=== PATIENT | female | born 1960 | race Caucasian/White ===

== ENCOUNTER 2018-10-14 12:23 | Inpatient (IN) | payer MEDICAID ==
[~2018-10-14] VITALS: Ht 149.9 cm; Wt 41.7 kg
[2018-10-14] MEDS ORDERED: GABA-529 PO (12:32)
[2018-10-14] MEDS ORDERED: RIVA10TA PO (12:32)
[2018-10-14] MEDS ORDERED: ASPI-1159 PO (12:32)
[2018-10-14] MEDS ORDERED: DEXTROSE 50% WATER 50ML SYRINGE IV ONE ×3 (14:30→16:04)
[2018-10-14] MEDS ORDERED: PIPERACILLIN/TAZ 3.375G PREMIX 50 ML IV ONE (14:30)
[2018-10-14] MEDS ORDERED: ONDANSETRON HCL 4MG/2ML INJ IV ONE ×2 (14:30→17:30)
[2018-10-14] MEDS ORDERED: MORPHINE SULFATE 4 MG/ML CPJ (NOT FOR IM USE) IV ONE ×2 (14:30→17:30)
[2018-10-14] MEDS ORDERED: VANCOMYCIN 1 G PREMIX 200 ML IV ONE (14:30)
[2018-10-14] MEDS ORDERED: SODIUM CHLORIDE 0.9% 1000ML BAG (SEPSIS BOLUS) IV ONE (14:45)
[2018-10-14 15:18] LABS: BASOPHILS % 0.5 % (0.0-2.0); EOSINOPHILS % 0.3 % (0.0-5.0); HEMATOCRIT. 32.3 % (36.0-48.0); HEMOGLOBIN. 9.9 g/dL (12.0-16.0); LYMPHOCYTES % 16.6 % (20.0-50.0); MEAN CORPUSCULAR HEMOGLOBIN 21.8 pg (28.0-32.0); MEAN CORPUSCULAR VOLUME 71.5 fL (81.0-99.0); MONOCYTES % 5.9 % (2.0-8.0); NEUTROPHILS % 76.7 % (40.0-76.0); PLATELET 515 x1000/uL (130-400); RED BLOOD CELL COUNT 4.52 mill/uL (4.2-5.4)
[2018-10-14 15:22] LABS: CHLORIDE 101 mEq/L (98-107)
[2018-10-14 15:24] LABS: INR 1.1; PARTIAL THROMBOPLASTIN TIME 30.7 sec (23.4-31.0); PROTHROMBIN TIME 11.4 sec (9.1-11.1)
[2018-10-14 15:52] LABS: PLATELET ESTIMATE INCREASED
[2018-10-14] MEDS ORDERED: ENOXAPARIN 40MG/0.4ML SYR SUBCUT ONE (17:30)
[2018-10-14 20:30] VITALS: BP_SYST 126; BP_DIAS 73; BP_DIAS 74
[2018-10-14] MEDS ORDERED: DEXTROSE 50% WATER 50ML SYRINGE IV PRN ×4 (21:45)
[2018-10-14] MEDS ORDERED: HEPARIN 25,000 UNITS PREMIX 500 ML IV SCH (21:45)
[2018-10-14 22:00] VITALS: BP 167/87
[2018-10-14] MEDS ORDERED: HEPARIN 80 UNITS/KG BOLUS IV SCH (22:30)
[2018-10-14] MEDS: GABAPENTIN 300MG CAPSULE PO SCH (22:46)
[2018-10-14] MEDS: MORPHINE SULFATE 4 MG/ML CPJ (NOT FOR IM USE) IV PRN (22:46)
[2018-10-14] MEDS ORDERED: HEPARIN BOLUS PRN aPTT 37-44 IV (23:00)
[2018-10-14] MEDS ORDERED: HEPARIN BOLUS PRN aPTT <36 IV (23:00)
[2018-10-14] MEDS: HEPARIN 25,000 UNITS PREMIX 500 ML IV SCH (23:31)
[2018-10-15] VITALS (12 sets, daily range): BP systolic 104–166; BP diastolic 29–108
[2018-10-15] MEDS: GABAPENTIN 300MG CAPSULE PO SCH ×3 (06:10→23:59)
[2018-10-15 06:31] LABS: BASOPHILS % 0.7 % (0.0-2.0); EOSINOPHILS % 0.8 % (0.0-5.0); HEMATOCRIT. 28.1 % (36.0-48.0); HEMOGLOBIN. 8.6 g/dL (12.0-16.0); LYMPHOCYTES % 23.7 % (20.0-50.0); MEAN CORPUSCULAR HEMOGLOBIN 21.6 pg (28.0-32.0); MEAN CORPUSCULAR VOLUME 70.9 fL (81.0-99.0); MEAN PLATELET VOLUME 7.7 fl (7.4-10.4); MONOCYTES % 9.4 % (2.0-8.0); NEUTROPHILS % 65.4 % (40.0-76.0); PLATELET 474 x1000/uL (130-400); RED BLOOD CELL COUNT 3.96 mill/uL (4.2-5.4); RED CELL DISTRIBUTION WIDTH 24.7 % (11.6-14.6)
[2018-10-15] MEDS ORDERED: BLOOD SUGAR DIAGNOSTIC STRIP TEST SCH ×3 (07:30)
[2018-10-15 07:33] LABS: CHLORIDE 103 mEq/L (98-107)
[2018-10-15] MEDS: LISINOPRIL 5MG TABLET PO SCH (08:52)
[2018-10-15] MEDS: MORPHINE SULFATE 4 MG/ML CPJ (NOT FOR IM USE) IV PRN ×2 (08:55→13:05)
[2018-10-15] MEDS: BLOOD SUGAR DIAGNOSTIC STRIP TEST SCH ×3 (12:30→20:27)
[2018-10-15] MEDS ORDERED: SODIUM BICARBONATE 4% (2.4MEQ) 5ML VIAL IV ONE (12:53)
[2018-10-15] MEDS ORDERED: LIDOCAINE HCL 1% 20ML VIAL (Pyxis) INJ ONE (12:53)
[2018-10-15] MEDS ORDERED: IOHEXOL-350 100 ML BOTTLE ONE (16:50)
[2018-10-15] MEDS ORDERED: RIVAROXABAN 10 MG TABLET PO SCH (17:00)
[2018-10-15] MEDS: INSULIN LISPRO 100 UNITS/ML SUBCUT SCH ×2 (18:00→20:33)
[2018-10-15] MEDS: ATORVASTATIN CALCIUM 40MG TABLET PO SCH (21:21)
[2018-10-16] VITALS (11 sets, daily range): BP systolic 97–132; BP diastolic 56–95
[2018-10-16] MEDS: MORPHINE SULFATE 4 MG/ML CPJ (NOT FOR IM USE) IV PRN ×5 (00:39→19:10)
[2018-10-16] MEDS: GABAPENTIN 300MG CAPSULE PO SCH ×3 (06:35→18:32)
[2018-10-16 06:48] LABS: BASOPHILS % 0.7 % (0.0-2.0); EOSINOPHILS % 1.6 % (0.0-5.0); HEMATOCRIT. 30.4 % (36.0-48.0); LYMPHOCYTES % 21.4 % (20.0-50.0); MEAN CORPUSCULAR HEMOGLOBIN 21.4 pg (28.0-32.0); MEAN CORPUSCULAR VOLUME 71.9 fL (81.0-99.0); MEAN PLATELET VOLUME 7.8 fl (7.4-10.4); MONOCYTES % 8.2 % (2.0-8.0); NEUTROPHILS % 68.1 % (40.0-76.0); PLATELET 448 x1000/uL (130-400); RED BLOOD CELL COUNT 4.23 mill/uL (4.2-5.4); RED CELL DISTRIBUTION WIDTH 24.9 % (11.6-14.6)
[2018-10-16 07:11] LABS: CHLORIDE 99 mEq/L (98-107)
[2018-10-16] MEDS: INSULIN LISPRO 100 UNITS/ML SUBCUT SCH ×4 (08:00→20:57)
[2018-10-16] MEDS: BLOOD SUGAR DIAGNOSTIC STRIP TEST SCH ×4 (08:27→20:55)
[2018-10-16] MEDS: LISINOPRIL 5MG TABLET PO SCH (08:31)
[2018-10-16] MEDS ORDERED: IOHEXOL-300 100 ML BOTTLE ONE (14:51)
[2018-10-16] MEDS ORDERED: IODIXANOL 320MG/ML 100 ML BOTTLE IV ONE (14:51)
[2018-10-16] MEDS ORDERED: LIDOCAINE HCL 1% 20ML VIAL (Pyxis) INJ ONE (14:51)
[2018-10-16] MEDS: ATORVASTATIN CALCIUM 40MG TABLET PO SCH (21:18)
[2018-10-16] MEDS: HYDROCODONE/ACETAMINOPHEN 5/325MG TABLET PO PRN (21:27)
[2018-10-16] MEDS: HEPARIN 25,000 UNITS PREMIX 500 ML IV SCH (21:56)
[2018-10-17] VITALS (22 sets, daily range): BP systolic 95–140; BP diastolic 52–79
[2018-10-17] MEDS: MORPHINE SULFATE 4 MG/ML CPJ (NOT FOR IM USE) IV PRN ×2 (00:44→05:34)
[2018-10-17] MEDS: GABAPENTIN 300MG CAPSULE PO SCH ×4 (06:00→18:58)
[2018-10-17] MEDS: BLOOD SUGAR DIAGNOSTIC STRIP TEST SCH ×3 (07:30→21:02)
[2018-10-17] MEDS ORDERED: IOHEXOL-300 100 ML BOTTLE ONE (07:31)
[2018-10-17] MEDS ORDERED: IODIXANOL 320MG/ML 100 ML BOTTLE IV ONE ×2 (07:31→09:34)
[2018-10-17] MEDS ORDERED: LIDOCAINE HCL 1% 20ML VIAL (Pyxis) INJ ONE (07:32)
[2018-10-17] MEDS: INSULIN LISPRO 100 UNITS/ML SUBCUT SCH ×3 (08:00→21:00)
[2018-10-17] MEDS ORDERED: MIDAZOLAM HCL 2 MG/2 ML VIAL ONE ×2 (08:09→09:12)
[2018-10-17] MEDS ORDERED: FENTANYL CITRATE/PF 50MCG/ML 2ML VIAL ONE (08:09)
[2018-10-17 08:27] LABS: BASOPHILS % 0.7 % (0.0-2.0); HEMOGLOBIN. 9.4 g/dL (12.0-16.0); LYMPHOCYTES % 12.7 % (20.0-50.0); MEAN CORPUSCULAR HEMOGLOBIN 21.8 pg (28.0-32.0); MEAN CORPUSCULAR VOLUME 72.1 fL (81.0-99.0); MEAN PLATELET VOLUME 7.8 fl (7.4-10.4); MONOCYTES % 5.8 % (2.0-8.0); NEUTROPHILS % 79.8 % (40.0-76.0); PLATELET 346 x1000/uL (130-400); RED CELL DISTRIBUTION WIDTH 24.7 % (11.6-14.6)
[2018-10-17 08:29] LABS: CHLORIDE 102 mEq/L (98-107)
[2018-10-17] MEDS ORDERED: HYDRALAZINE 20MG/ML VIAL ONE (09:22)
[2018-10-17] MEDS ORDERED: HEPARIN SODIUM 1,000 UNIT/1ML VIAL IV ONE (13:39)
[2018-10-17] MEDS ORDERED: NICARDIPINE 100MCG/ML 10ML VIAL (CATH LAB) IV ONE (13:45)
[2018-10-17] MEDS ORDERED: NITROGLYCERIN 50MCG/ML 10ML VIAL (CATH LAB) IV ONE (13:45)
[2018-10-17] MEDS: CLOPIDOGREL 75MG TABLET PO SCH (14:57)
[2018-10-17] MEDS: LISINOPRIL 5MG TABLET PO SCH (14:57)
[2018-10-17] MEDS: HYDROCODONE/ACETAMINOPHEN 5/325MG TABLET PO PRN ×2 (14:58→21:25)
[2018-10-17] MEDS: ATORVASTATIN CALCIUM 40MG TABLET PO SCH (21:14)
[2018-10-18] VITALS (12 sets, daily range): BP systolic 90–126; BP diastolic 56–75
[2018-10-18] MEDS: GABAPENTIN 300MG CAPSULE PO SCH ×4 (00:45→17:56)
[2018-10-18] MEDS: MORPHINE SULFATE 4 MG/ML CPJ (NOT FOR IM USE) IV PRN ×2 (02:52→23:30)
[2018-10-18] MEDS: BLOOD SUGAR DIAGNOSTIC STRIP TEST SCH ×4 (06:40→20:50)
[2018-10-18] MEDS: HYDROCODONE/ACETAMINOPHEN 5/325MG TABLET PO PRN ×3 (06:46→20:14)
[2018-10-18] MEDS: INSULIN LISPRO 100 UNITS/ML SUBCUT SCH ×4 (07:20→20:50)
[2018-10-18 08:54] LABS: BASOPHILS % 0.5 % (0.0-2.0); EOSINOPHILS % 1.6 % (0.0-5.0); HEMATOCRIT. 29.2 % (36.0-48.0); HEMOGLOBIN. 8.6 g/dL (12.0-16.0); LYMPHOCYTES % 8.7 % (20.0-50.0); MEAN CORPUSCULAR HEMOGLOBIN 21.4 pg (28.0-32.0); MEAN CORPUSCULAR VOLUME 72.1 fL (81.0-99.0); MEAN PLATELET VOLUME 8.6 fl (7.4-10.4); MONOCYTES % 6.1 % (2.0-8.0); NEUTROPHILS % 83.1 % (40.0-76.0); PLATELET 307 x1000/uL (130-400); RED BLOOD CELL COUNT 4.04 mill/uL (4.2-5.4); RED CELL DISTRIBUTION WIDTH 25.4 % (11.6-14.6)
[2018-10-18] MEDS: LISINOPRIL 5MG TABLET PO SCH (09:00)
[2018-10-18] MEDS: CLOPIDOGREL 75MG TABLET PO SCH (09:17)
[2018-10-18 11:00] LABS: CHLORIDE 101 mEq/L (98-107)
[2018-10-18] MEDS: ATORVASTATIN CALCIUM 40MG TABLET PO SCH (20:12)
[2018-10-19] VITALS (13 sets, daily range): BP systolic 100–143; BP diastolic 29–83
[2018-10-19] MEDS: GABAPENTIN 300MG CAPSULE PO SCH ×4 (00:40→17:48)
[2018-10-19] MEDS: HYDROCODONE/ACETAMINOPHEN 5/325MG TABLET PO PRN ×2 (05:29→11:20)
[2018-10-19] MEDS: BLOOD SUGAR DIAGNOSTIC STRIP TEST SCH ×4 (06:35→20:52)
[2018-10-19] MEDS: INSULIN LISPRO 100 UNITS/ML SUBCUT SCH ×4 (07:20→20:53)
[2018-10-19] MEDS: CLOPIDOGREL 75MG TABLET PO SCH (09:39)
[2018-10-19] MEDS: LISINOPRIL 5MG TABLET PO SCH (09:39)
[2018-10-19] MEDS: ATORVASTATIN CALCIUM 40MG TABLET PO SCH (20:06)
[2018-10-19] MEDS: MORPHINE SULFATE 4 MG/ML CPJ (NOT FOR IM USE) IV PRN (20:09)
[2018-10-20] VITALS (14 sets, daily range): BP systolic 88–127; BP diastolic 53–78
[2018-10-20] MEDS: HYDROCODONE/ACETAMINOPHEN 5/325MG TABLET PO PRN ×3 (00:46→16:31)
[2018-10-20] MEDS: GABAPENTIN 300MG CAPSULE PO SCH ×4 (00:50→18:29)
[2018-10-20] MEDS: INSULIN LISPRO 100 UNITS/ML SUBCUT SCH ×4 (07:20→21:00)
[2018-10-20] MEDS: BLOOD SUGAR DIAGNOSTIC STRIP TEST SCH ×4 (07:27→21:00)
[2018-10-20] MEDS: CLOPIDOGREL 75MG TABLET PO SCH (08:19)
[2018-10-20] MEDS: LISINOPRIL 5MG TABLET PO SCH (08:20)
[2018-10-20] MEDS: KETOROLAC 15MG/ML VIAL IV PRN (12:22)
[2018-10-20] MEDS: MORPHINE SULFATE 4 MG/ML CPJ (NOT FOR IM USE) IV PRN (19:44)
[2018-10-20] MEDS: ATORVASTATIN CALCIUM 40MG TABLET PO SCH (20:05)
[2018-10-21] VITALS (12 sets, daily range): BP systolic 93–138; BP diastolic 54–75
[2018-10-21] MEDS: GABAPENTIN 300MG CAPSULE PO SCH ×4 (00:13→16:56)
[2018-10-21] MEDS: HYDROCODONE/ACETAMINOPHEN 5/325MG TABLET PO PRN (01:43)
[2018-10-21] MEDS: MORPHINE SULFATE 4 MG/ML CPJ (NOT FOR IM USE) IV PRN ×4 (02:42→23:03)
[2018-10-21] MEDS: BLOOD SUGAR DIAGNOSTIC STRIP TEST SCH ×4 (07:00→21:00)
[2018-10-21 07:09] LABS: BASOPHILS % 0.5 % (0.0-2.0); EOSINOPHILS % 4.5 % (0.0-5.0); HEMATOCRIT. 23.2 % (36.0-48.0); HEMOGLOBIN. 7.2 g/dL (12.0-16.0); LYMPHOCYTES % 13.8 % (20.0-50.0); MEAN CORPUSCULAR HEMOGLOBIN 22.3 pg (28.0-32.0); MEAN CORPUSCULAR VOLUME 72.2 fL (81.0-99.0); MEAN PLATELET VOLUME 8.8 fl (7.4-10.4); MONOCYTES % 6.7 % (2.0-8.0); NEUTROPHILS % 74.5 % (40.0-76.0); PLATELET 206 x1000/uL (130-400); RED BLOOD CELL COUNT 3.22 mill/uL (4.2-5.4); RED CELL DISTRIBUTION WIDTH 25.7 % (11.6-14.6)
[2018-10-21 07:17] LABS: CHLORIDE 103 mEq/L (98-107)
[2018-10-21] MEDS: INSULIN LISPRO 100 UNITS/ML SUBCUT SCH ×4 (07:20→21:00)
[2018-10-21] MEDS: CLOPIDOGREL 75MG TABLET PO SCH (08:32)
[2018-10-21] MEDS: LISINOPRIL 5MG TABLET PO SCH (08:33)
[2018-10-21 11:05] LABS: TOTAL IRON BINDING CAPACITY 279 ug/dL (250-450)
[2018-10-21 12:31] LABS: PLATELET ESTIMATE NORMAL
[2018-10-21] MEDS: KETOROLAC 15MG/ML VIAL IV PRN (20:33)
[2018-10-21] MEDS: ATORVASTATIN CALCIUM 40MG TABLET PO SCH (21:29)
[2018-10-22] VITALS (9 sets, daily range): BP systolic 94–110; BP diastolic 56–75
[2018-10-22] MEDS: GABAPENTIN 300MG CAPSULE PO SCH ×4 (00:06→16:16)
[2018-10-22] MEDS: BLOOD SUGAR DIAGNOSTIC STRIP TEST SCH ×5 (06:50→21:00)
[2018-10-22] MEDS: MORPHINE SULFATE 4 MG/ML CPJ (NOT FOR IM USE) IV PRN (07:02)
[2018-10-22 07:14] LABS: BASOPHILS % 0.7 % (0.0-2.0); EOSINOPHILS % 5.5 % (0.0-5.0); HEMATOCRIT. 23.8 % (36.0-48.0); HEMOGLOBIN. 7.2 g/dL (12.0-16.0); LYMPHOCYTES % 16.1 % (20.0-50.0); MEAN CORPUSCULAR HEMOGLOBIN 21.9 pg (28.0-32.0); MEAN CORPUSCULAR VOLUME 72.1 fL (81.0-99.0); MEAN PLATELET VOLUME 8.5 fl (7.4-10.4); MONOCYTES % 8.2 % (2.0-8.0); NEUTROPHILS % 69.5 % (40.0-76.0); PLATELET 293 x1000/uL (130-400); RED CELL DISTRIBUTION WIDTH 25.2 % (11.6-14.6)
[2018-10-22] MEDS: INSULIN LISPRO 100 UNITS/ML SUBCUT SCH ×4 (07:20→21:00)
[2018-10-22 07:59] LABS: CHLORIDE 104 mEq/L (98-107)
[2018-10-22] MEDS: LISINOPRIL 5MG TABLET PO SCH (08:48)
[2018-10-22] MEDS: CLOPIDOGREL 75MG TABLET PO SCH (08:49)
[2018-10-22] MEDS: FERROUS SULFATE 325MG TABLET PO SCH ×2 (13:52→16:16)
[2018-10-22] MEDS: DOCUSATE SODIUM 100MG CAPSULE PO SCH (16:16)
[2018-10-22] MEDS: KETOROLAC 15MG/ML VIAL IV PRN ×2 (16:20→21:58)
[2018-10-22] MEDS: ATORVASTATIN CALCIUM 40MG TABLET PO SCH (21:58)
[2018-10-23] MEDS: GABAPENTIN 300MG CAPSULE PO SCH ×5 (01:52→23:02)
[2018-10-23] MEDS: MORPHINE SULFATE 4 MG/ML CPJ (NOT FOR IM USE) IV PRN (01:56)
[2018-10-23 04:00] VITALS: BP 103/55
[2018-10-23] MEDS: KETOROLAC 15MG/ML VIAL IV PRN ×2 (06:44→23:02)
[2018-10-23] MEDS: BLOOD SUGAR DIAGNOSTIC STRIP TEST SCH ×4 (07:39→21:00)
[2018-10-23] MEDS: INSULIN LISPRO 100 UNITS/ML SUBCUT SCH ×4 (07:40→21:00)
[2018-10-23 07:53] LABS: HEMATOCRIT 25.6 % (36.0-48.0); HEMOGLOBIN 7.7 g/dL (12.0-16.0); MEAN CORPUSCULAR HEMOGLOBIN 21.9 pg (28.0-32.0); MEAN CORPUSCULAR VOLUME 72.9 fL (81.0-99.0); PLATELET 307 x1000/uL (130-400); RED BLOOD CELL COUNT 3.51 mill/uL (4.2-5.4)
[2018-10-23 08:00] VITALS: BP 90/45
[2018-10-23] MEDS: LISINOPRIL 5MG TABLET PO SCH (09:00)
[2018-10-23] MEDS: CLOPIDOGREL 75MG TABLET PO SCH (09:32)
[2018-10-23] MEDS: FERROUS SULFATE 325MG TABLET PO SCH ×3 (09:32→17:22)
[2018-10-23] MEDS: DOCUSATE SODIUM 100MG CAPSULE PO SCH ×2 (09:32→17:22)
[2018-10-23 11:20] VITALS: BP 104/46
[2018-10-23] MEDS: HYDROCODONE/ACETAMINOPHEN 10/325MG TABLET PO PRN (15:17)
[2018-10-23 16:00] VITALS: BP 109/59
[2018-10-23 20:00] VITALS: BP 120/41
[2018-10-23] MEDS: ATORVASTATIN CALCIUM 40MG TABLET PO SCH (23:01)
[2018-10-24] VITALS: BP 134/71
[2018-10-24 04:00] VITALS: BP 111/54
[2018-10-24] MEDS: GABAPENTIN 300MG CAPSULE PO SCH ×3 (05:48→18:08)
[2018-10-24] MEDS: KETOROLAC 15MG/ML VIAL IV PRN (05:49)
[2018-10-24] MEDS: BLOOD SUGAR DIAGNOSTIC STRIP TEST SCH ×3 (07:20→17:38)
[2018-10-24] MEDS: INSULIN LISPRO 100 UNITS/ML SUBCUT SCH ×2 (07:38→12:50)
[2018-10-24 08:00] VITALS: BP 119/64
[2018-10-24] MEDS: LISINOPRIL 5MG TABLET PO SCH (09:00)
[2018-10-24] MEDS: FERROUS SULFATE 325MG TABLET PO SCH ×3 (09:06→18:08)
[2018-10-24] MEDS: CLOPIDOGREL 75MG TABLET PO SCH (09:06)
[2018-10-24] MEDS: DOCUSATE SODIUM 100MG CAPSULE PO SCH ×2 (09:06→18:08)
[2018-10-24] MEDS: HYDROCODONE/ACETAMINOPHEN 10/325MG TABLET PO PRN ×2 (09:07→14:10)
[2018-10-24 12:00] VITALS: BP 110/62
[2018-10-24 16:00] VITALS: BP 96/53
[2018-10-24 20:00] VITALS: BP 115/59
[2018-10-24] MEDS: ATORVASTATIN CALCIUM 40MG TABLET PO SCH (21:23)
[2018-10-24] MEDS: MORPHINE SULFATE 4 MG/ML CPJ (NOT FOR IM USE) IV PRN (21:24)
[2018-10-25] VITALS: BP 118/62
[2018-10-25] MEDS: GABAPENTIN 300MG CAPSULE PO SCH ×4 (00:21→17:27)
[2018-10-25] MEDS: MORPHINE SULFATE 4 MG/ML CPJ (NOT FOR IM USE) IV PRN ×4 (01:17→16:14)
[2018-10-25 04:00] VITALS: BP 127/54
[2018-10-25 06:43] LABS: HEMATOCRIT 25.1 % (36.0-48.0); HEMOGLOBIN 7.7 g/dL (12.0-16.0); MEAN CORPUSCULAR HEMOGLOBIN 22.5 pg (28.0-32.0); MEAN CORPUSCULAR VOLUME 73.8 fL (81.0-99.0); PLATELET 345 x1000/uL (130-400); RED CELL DISTRIBUTION WIDTH 25.1 % (11.6-14.6)
[2018-10-25 08:00] VITALS: BP 108/63
[2018-10-25] MEDS: LISINOPRIL 5MG TABLET PO SCH (08:23)
[2018-10-25] MEDS: DOCUSATE SODIUM 100MG CAPSULE PO SCH ×2 (08:44→17:27)
[2018-10-25] MEDS: FERROUS SULFATE 325MG TABLET PO SCH ×3 (08:44→17:27)
[2018-10-25] MEDS: CLOPIDOGREL 75MG TABLET PO SCH (08:44)
[2018-10-25] MEDS: FAMOTIDINE 20MG TABLET PO SCH ×2 (10:28→21:52)
[2018-10-25 12:00] VITALS: BP 104/60
[2018-10-25 15:51] VITALS: BP 111/59
[2018-10-25 20:00] VITALS: BP 98/58
[2018-10-25] MEDS: TRAMADOL 50MG TABLET PO PRN (21:26)
[2018-10-25] MEDS: ATORVASTATIN CALCIUM 40MG TABLET PO SCH (21:26)
[2018-10-26] VITALS: BP 102/59
[2018-10-26] MEDS: GABAPENTIN 300MG CAPSULE PO SCH ×5 (00:56→23:46)
[2018-10-26 04:00] VITALS: BP 121/64
[2018-10-26] MEDS: MORPHINE SULFATE 4 MG/ML CPJ (NOT FOR IM USE) IV PRN ×2 (04:12→09:09)
[2018-10-26 08:00] VITALS: BP_SYST 120; BP_SYST 99; BP_DIAS 57; BP_DIAS 62
[2018-10-26] MEDS: CLOPIDOGREL 75MG TABLET PO SCH (08:54)
[2018-10-26] MEDS: DOCUSATE SODIUM 100MG CAPSULE PO SCH ×2 (08:54→17:00)
[2018-10-26] MEDS: FERROUS SULFATE 325MG TABLET PO SCH ×3 (08:54→17:43)
[2018-10-26] MEDS: FAMOTIDINE 20MG TABLET PO SCH ×2 (08:54→22:00)
[2018-10-26] MEDS: LISINOPRIL 5MG TABLET PO SCH (08:54)
[2018-10-26 12:00] VITALS: BP 99/57
[2018-10-26 16:00] VITALS: BP 101/54
[2018-10-26] MEDS: TRAMADOL 50MG TABLET PO PRN (17:44)
[2018-10-26 18:55] LABS: CLARITY URINE CLEAR (CLEAR); COLOR URINE YELLOW (YELLOW); KETONES URINE NEGATIVE (NEGATIVE); LEUKOCYTE ESTERASE URINE NEGATIVE (NEGATIVE); NITRITE URINE NEGATIVE (NEGATIVE); OCCULT BLOOD URINE NEGATIVE (NEGATIVE); PROTEIN URINE NEGATIVE (NEGATIVE); SPECIFIC GRAVITY URINE 1.011 (1.005-1.030)
[2018-10-26 19:05] LABS: *AMPHETAMINES SCREEN URINE NEGATIVE (NEGATIVE); *BARBITURATES SCREEN URINE NEGATIVE (NEGATIVE); *BENZODIAZEPINES SCREEN URINE NEGATIVE (NEGATIVE); *COCAINE SCREEN URINE NEGATIVE (NEGATIVE); METHADONE URINE SCREEN NEGATIVE (NEGATIVE)
[2018-10-26 19:06] LABS: CANNABINOID URINE SCREEN NEGATIVE (NEGATIVE); OPIATES URINE SCREEN PRESUMTIVE POSITIVE (NEGATIVE); PHENCYCLIDINE URINE SCREEN NEGATIVE (NEGATIVE)
[2018-10-26 20:00] VITALS: BP 107/61
[2018-10-26] MEDS: ATORVASTATIN CALCIUM 40MG TABLET PO SCH (22:01)
[2018-10-27 00:15] VITALS: BP 106/64
[2018-10-27 04:00] VITALS: BP 103/57
[2018-10-27] MEDS: TRAMADOL 50MG TABLET PO PRN ×3 (04:18→20:55)
[2018-10-27 06:02] LABS: BASOPHILS % 0.4 % (0.0-2.0); EOSINOPHILS % 2.9 % (0.0-5.0); HEMATOCRIT. 26.8 % (36.0-48.0); HEMOGLOBIN. 8.2 g/dL (12.0-16.0); LYMPHOCYTES % 22.7 % (20.0-50.0); MEAN CORPUSCULAR HEMOGLOBIN 22.8 pg (28.0-32.0); MEAN CORPUSCULAR VOLUME 74.7 fL (81.0-99.0); MEAN PLATELET VOLUME 7.8 fl (7.4-10.4); MONOCYTES % 8.8 % (2.0-8.0); NEUTROPHILS % 65.2 % (40.0-76.0); PLATELET 387 x1000/uL (130-400); RED BLOOD CELL COUNT 3.59 mill/uL (4.2-5.4); RED CELL DISTRIBUTION WIDTH 26.1 % (11.6-14.6)
[2018-10-27] MEDS: GABAPENTIN 300MG CAPSULE PO SCH ×3 (06:13→17:18)
[2018-10-27 06:21] LABS: CHLORIDE 104 mEq/L (98-107)
[2018-10-27 08:00] VITALS: BP 98/57
[2018-10-27] MEDS: DOCUSATE SODIUM 100MG CAPSULE PO SCH ×2 (09:00→16:56)
[2018-10-27] MEDS: LISINOPRIL 5MG TABLET PO SCH (09:00)
[2018-10-27] MEDS: FERROUS SULFATE 325MG TABLET PO SCH ×3 (09:34→17:18)
[2018-10-27] MEDS: FAMOTIDINE 20MG TABLET PO SCH ×2 (09:34→20:55)
[2018-10-27] MEDS: CLOPIDOGREL 75MG TABLET PO SCH (09:34)
[2018-10-27 12:00] VITALS: BP 105/62
[2018-10-27] MEDS: MORPHINE SULFATE 4 MG/ML CPJ (NOT FOR IM USE) IV PRN (12:11)
[2018-10-27 16:00] VITALS: BP 98/56
[2018-10-27 20:00] VITALS: BP 107/62
[2018-10-27] MEDS: ATORVASTATIN CALCIUM 40MG TABLET PO SCH (20:55)
[2018-10-28] VITALS: BP 99/60
[2018-10-28] MEDS: GABAPENTIN 300MG CAPSULE PO SCH ×4 (00:52→17:58)
[2018-10-28 04:00] VITALS: BP 103/69
[2018-10-28] MEDS: MORPHINE SULFATE 4 MG/ML CPJ (NOT FOR IM USE) IV PRN ×5 (04:14→22:29)
[2018-10-28 08:00] VITALS: BP 114/61
[2018-10-28] MEDS: FERROUS SULFATE 325MG TABLET PO SCH ×3 (08:15→17:58)
[2018-10-28] MEDS: CLOPIDOGREL 75MG TABLET PO SCH (08:15)
[2018-10-28] MEDS: FAMOTIDINE 20MG TABLET PO SCH ×2 (08:15→21:29)
[2018-10-28] MEDS: DOCUSATE SODIUM 100MG CAPSULE PO SCH ×2 (08:17→17:00)
[2018-10-28] MEDS: LISINOPRIL 5MG TABLET PO SCH (09:00)
[2018-10-28 12:00] VITALS: BP 102/55
[2018-10-28 16:00] VITALS: BP 114/65
[2018-10-28 20:00] VITALS: BP 110/56
[2018-10-28] MEDS: ATORVASTATIN CALCIUM 40MG TABLET PO SCH (21:29)
[2018-10-29] VITALS: BP 98/53
[2018-10-29] MEDS: GABAPENTIN 300MG CAPSULE PO SCH ×5 (00:37→23:47)
[2018-10-29 04:00] VITALS: BP 106/59
[2018-10-29] MEDS: MORPHINE SULFATE 4 MG/ML CPJ (NOT FOR IM USE) IV PRN ×2 (05:06→10:05)
[2018-10-29] MEDS: TRAMADOL 50MG TABLET PO PRN (06:53)
[2018-10-29 08:00] VITALS: BP 117/57
[2018-10-29] MEDS: DOCUSATE SODIUM 100MG CAPSULE PO SCH ×2 (09:00→17:00)
[2018-10-29] MEDS: CLOPIDOGREL 75MG TABLET PO SCH (09:49)
[2018-10-29] MEDS: FAMOTIDINE 20MG TABLET PO SCH ×2 (09:49→21:05)
[2018-10-29] MEDS: FERROUS SULFATE 325MG TABLET PO SCH ×3 (09:50→17:43)
[2018-10-29] MEDS: LISINOPRIL 5MG TABLET PO SCH (09:53)
[2018-10-29 12:00] VITALS: BP 113/57
[2018-10-29 16:00] VITALS: BP 110/51
[2018-10-29 20:00] VITALS: BP 100/53
[2018-10-29] MEDS: ATORVASTATIN CALCIUM 40MG TABLET PO SCH (21:04)
[2018-10-29] MEDS: MORPHINE SULFATE 10MG/5ML ORAL SOLN UDC PO PRN (21:16)
[2018-10-30] VITALS: BP 103/59
[2018-10-30] MEDS: MORPHINE SULFATE 10MG/5ML ORAL SOLN UDC PO PRN ×4 (03:33→22:07)
[2018-10-30 04:00] VITALS: BP 100/59
[2018-10-30] MEDS: GABAPENTIN 300MG CAPSULE PO SCH ×3 (05:03→18:09)
[2018-10-30 08:00] VITALS: BP 109/60
[2018-10-30] MEDS: FERROUS SULFATE 325MG TABLET PO SCH ×3 (08:38→18:09)
[2018-10-30] MEDS: CLOPIDOGREL 75MG TABLET PO SCH (08:38)
[2018-10-30] MEDS: FAMOTIDINE 20MG TABLET PO SCH ×2 (08:38→22:32)
[2018-10-30] MEDS: LISINOPRIL 5MG TABLET PO SCH (08:39)
[2018-10-30] MEDS: DOCUSATE SODIUM 100MG CAPSULE PO SCH ×2 (08:42→17:00)
[2018-10-30 12:00] VITALS: BP 119/67
[2018-10-30] MEDS: HYDROMORPHONE HCL/PF 2MG/ML CPJ IV PRN (14:04)
[2018-10-30 16:00] VITALS: BP 114/58
[2018-10-30 20:00] VITALS: BP 106/62
[2018-10-30] MEDS: ATORVASTATIN CALCIUM 40MG TABLET PO SCH (22:32)
[2018-10-31 00:10] VITALS: BP 114/68
[2018-10-31] MEDS: GABAPENTIN 300MG CAPSULE PO SCH ×3 (01:16→12:38)
[2018-10-31 04:00] VITALS: BP 127/53
[2018-10-31] MEDS: HYDROMORPHONE HCL/PF 2MG/ML CPJ IV PRN (06:06)
[2018-10-31 08:00] VITALS: BP 145/68
[2018-10-31] MEDS: DOCUSATE SODIUM 100MG CAPSULE PO SCH (08:20)
[2018-10-31] MEDS: FAMOTIDINE 20MG TABLET PO SCH (08:32)
[2018-10-31] MEDS: CLOPIDOGREL 75MG TABLET PO SCH (08:33)
[2018-10-31] MEDS: FERROUS SULFATE 325MG TABLET PO SCH ×2 (08:33→12:38)
[2018-10-31] MEDS: LISINOPRIL 5MG TABLET PO SCH (08:34)
[2018-10-31] MEDS: MORPHINE SULFATE 10MG/5ML ORAL SOLN UDC PO PRN (08:35)
[2018-10-31 12:00] VITALS: BP 102/66
[2018-10-31 13:11] VITALS: BP 102/66
== END 2018-10-31 15:20 | DRG 181 ==
LOC: ER 12:23 → 5EST 17:25 → EDBEDREQ 17:41 → ENRESERV 17:42 → 3WST 10-17 13:50 → 6EST 10-22 12:00
PROVIDERS: ADMIT Internal Medicine; ATTEND Internal Medicine
PROC: 02H633Z Insertion of Infusion Device into Right Atrium, Percutaneous Approach (ICD-10-PCS; principal; 2018-10-15)
PROC: B244ZZZ Ultrasonography of Right Heart (ICD-10-PCS; 2018-10-15)
PROC: 047K3DZ Dilation of Right Femoral Artery with Intraluminal Device, Percutaneous Approach (ICD-10-PCS; 2018-10-17)
PROC: B41G1ZZ Fluoroscopy of Left Lower Extremity Arteries using Low Osmolar Contrast (ICD-10-PCS; 2018-10-17)
PROC: B41F1ZZ Fluoroscopy of Right Lower Extremity Arteries using Low Osmolar Contrast (ICD-10-PCS; 2018-10-17)
PROC: 047M3ZZ Dilation of Right Popliteal Artery, Percutaneous Approach (ICD-10-PCS; 2018-10-17)
PROC: 047R3ZZ Dilation of Right Posterior Tibial Artery, Percutaneous Approach (ICD-10-PCS; 2018-10-17)
PROC: 04CK3ZZ Extirpation of Matter from Right Femoral Artery, Percutaneous Approach (ICD-10-PCS; 2018-10-17)
PROC: 04CM3ZZ Extirpation of Matter from Right Popliteal Artery, Percutaneous Approach (ICD-10-PCS; 2018-10-17)
PROC: 04CR3ZZ Extirpation of Matter from Right Posterior Tibial Artery, Percutaneous Approach (ICD-10-PCS; 2018-10-17)
PROC: 047Y3ZZ Dilation of Lower Artery, Percutaneous Approach (ICD-10-PCS; 2018-10-17)
DX: T82.898A Other specified complication of vascular prosthetic devices, implants and grafts, initial encounter (principal); E11.649 Type 2 diabetes mellitus with hypoglycemia without coma; E11.52 Type 2 diabetes mellitus with diabetic peripheral angiopathy with gangrene; I73.9 Peripheral vascular disease, unspecified; E44.1 Mild protein-calorie malnutrition; E87.1 Hypo-osmolality and hyponatremia; E78.5 Hyperlipidemia, unspecified; I10 Essential (primary) hypertension; D64.9 Anemia, unspecified; E11.65 Type 2 diabetes mellitus with hyperglycemia; E78.00 Pure hypercholesterolemia, unspecified; E86.0 Dehydration; F17.200 Nicotine dependence, unspecified, uncomplicated; Y83.1 Surgical operation with implant of artificial internal device as the cause of abnormal reaction of the patient, or of later complication, without mention of misadventure at the time of the procedure; Z79.01 Long term (current) use of anticoagulants; Z79.02 Long term (current) use of antithrombotics/antiplatelets; Z89.432 Acquired absence of left foot
CPT/HCPCS: 36415; 36569; 37227; 71045; 73630; 75635; 75710; 76937; 80048; 80305; 82728; 82962; 83540; 83550; 83605; 83880; 84145; 84484; 85027; 85347; 86850; 86900; 93005; 93923; 93970; 96365; 96375; 97162; 99291; C1725; C1760; C1769; C1885; C1887; C1893; C1894; J0360; J1170; J1644; J1650; J1815; J1885; J2250; J2270; J2405; J2543; J3010; J3370; J3490; J7030; Q9967